=== PATIENT | male | born 1935 | race Two or more races ===

== ENCOUNTER 2023-02-18 22:16 | Inpatient (IN) | payer OTHER ==
[~2023-02-18] VITALS: Ht 177.8 cm; Wt 97.5 kg
[2023-02-18] MEDS ORDERED: METFORMIN HCL500 MG PO (22:25)
[2023-02-19] MEDS ORDERED: CIPRO500 MG PO (00:44)
[2023-02-19] MEDS ORDERED: AVAPRO150 MG PO (00:45)
[2023-02-19] MEDS ORDERED: LASIX20 MG (00:46)
[2023-02-19] MEDS ORDERED: OCUVITE EYE HE1 EACH PO (00:46)
[2023-02-19] MEDS ORDERED: TAMS0.4C PO (00:46)
[2023-02-19] MEDS ORDERED: METFORMIN HCL1000 M2 PO (00:47)
[2023-02-19] MEDS ORDERED: VASOFLEX D1 CA1 EACH (00:47)
[2023-02-19] MEDS ORDERED: ATORVASTATIN CA20 MG (00:47)
[2023-02-19] MEDS ORDERED: VASOFLEX HD CA1 EACH (14:57)
== END 2023-02-23 12:21 | disposition designated cancer center or children's hospital (05) | DRG 281 ==
LOC: ER 22:16 → MEDI 02-19 11:24
PROVIDERS: ADMIT Internal Medicine; ATTEND Internal Medicine
PROC: 4A12X4Z Monitoring of Cardiac Electrical Activity, External Approach (ICD-10-PCS; principal; 2023-02-19)
PROC: B246ZZZ Ultrasonography of Right and Left Heart (ICD-10-PCS; 2023-02-19)
PROC: BW40ZZZ Ultrasonography of Abdomen (ICD-10-PCS; 2023-02-19)
PROC: BW4GZZZ Ultrasonography of Pelvic Region (ICD-10-PCS; 2023-02-19)
PROC: B020ZZZ Computerized Tomography (CT Scan) of Brain (ICD-10-PCS; 2023-02-19)
PROC: 3E0F7SF Introduction of Other Gas into Respiratory Tract, Via Natural or Artificial Opening (ICD-10-PCS; 2023-02-19)
DX: I21.4 Non-ST elevation (NSTEMI) myocardial infarction (principal); N39.0 Urinary tract infection, site not specified; I24.9 Acute ischemic heart disease, unspecified; I11.9 Hypertensive heart disease without heart failure; N40.0 Benign prostatic hyperplasia without lower urinary tract symptoms; E11.9 Type 2 diabetes mellitus without complications; R42 Dizziness and giddiness; Z79.84 Long term (current) use of oral hypoglycemic drugs